=== PATIENT | male | born 1995 | race African-American/Black ===

== ENCOUNTER 2023-12-27 14:07 | Emergency (ER) | payer OTHER, SELFPAY ==
[~2023-12-27] VITALS: Ht 180.3 cm; Wt 105.6 kg
[2023-12-27 14:08] VITALS: BP 139/88; TEMP 97.8; O2SAT 98
[2023-12-27] MEDS ORDERED: MELO15TA28 PO (15:55)
== END 2023-12-27 16:19 | disposition home or self-care (01) ==
LOC: M ED 14:07
DX: M25.531 Pain in right wrist (principal); M79.641 Pain in right hand; F17.200 Nicotine dependence, unspecified, uncomplicated; Z79.899 Other long term (current) drug therapy